=== PATIENT | male | born 1985 | race Caucasian/White ===

== ENCOUNTER 2017-02-06 04:58 | Emergency (ER) | payer SELFPAY ==
[2017-02-06 09:36] LABS: BASOPHIL % 0.2 % (0-2); RED CELL DISTRIBUTION WIDTH 13.6 % (11.5-14.5)
[2017-02-06 09:42] LABS: PLATELET COUNT 126 x10^3mcL (130-400)
[2017-02-06 10:23] LABS: CALCIUM 8.6 mg/dL (8.5-10.1); CARBON DIOXIDE 23.5 mmol/L (21-32); CHLORIDE SERUM 100 mmol/L (98-107); CREATININE SERUM 1.1 mg/dL (0.7-1.3); GFR1 > 60 mL/min; GLUCOSE SERUM 101 mg/dL (74-106); POTASSIUM SERUM 3.7 mmol/L (3.5-5.1); SODIUM SERUM 133 mmol/L (136-145)
[2017-02-06 10:27] LABS: ALKALINE PHOSPHATASE 89 U/L (46-116); ALT/SGPT 72 U/L (16-63); AMYLASE 33 U/L (25-115); AST/SGOT 38 U/L (15-37); BILIRUBIN TOTAL 0.84 mg/dL (0.20-1.00); LIPASE 227 IU/L (73-393); TOTAL PROTEIN, SERUM 8.2 g/dL (6.4-8.2)
[2017-02-06 11:33] VITALS: BP 129/77
== END 2017-02-06 11:33 | disposition home or self-care (01) ==
LOC: ED 04:58
PROVIDERS: Specialist
DX: R10.9 Unspecified abdominal pain (principal); R11.10 Vomiting, unspecified; R19.7 Diarrhea, unspecified
CPT/HCPCS: 83880; J1885; J7030

== ENCOUNTER 2017-05-18 23:40 | Emergency (ER) | payer SELFPAY ==
[~2017-05-18] VITALS: Ht 172.7 cm; Wt 96.2 kg
[2017-05-18 23:58] VITALS: BP 139/62
== END 2017-05-19 00:25 | disposition left against medical advice (07) ==
LOC: ED 23:40
DX: Z53.21 Procedure and treatment not carried out due to patient leaving prior to being seen by health care provider (principal)

== ENCOUNTER 2017-05-19 11:28 | Emergency (ER) | payer SELFPAY ==
[2017-05-19 11:35] VITALS: BP 127/95
== END 2017-05-19 12:00 | disposition left against medical advice (07) ==
LOC: ED 11:28
DX: Z53.21 Procedure and treatment not carried out due to patient leaving prior to being seen by health care provider (principal)

== ENCOUNTER 2017-05-19 13:15 | Emergency (ER) | payer SELFPAY ==
[~2017-05-19] VITALS: Ht 167.6 cm; Wt 90.7 kg
[2017-05-19 14:16] LABS: CALCIUM 8.6 mg/dL (8.5-10.1); CARBON DIOXIDE 24.6 mmol/L (21-32); CHLORIDE SERUM 100 mmol/L (98-107); CREATININE SERUM 0.8 mg/dL (0.7-1.3); GFR1 > 60 mL/min; GLUCOSE SERUM 77 mg/dL (74-106); POTASSIUM SERUM 3.2 mmol/L (3.5-5.1); SODIUM SERUM 135 mmol/L (136-145)
[2017-05-19 14:20] LABS: BASOPHIL % 0.4 % (0-2); PLATELET COUNT 212 x10^3mcL (130-400); RED CELL DISTRIBUTION WIDTH 12.9 % (11.5-14.5)
[2017-05-19 14:21] LABS: ALKALINE PHOSPHATASE 60 U/L (46-116); ALT/SGPT 29 U/L (16-63); AMYLASE 24 U/L (25-115); AST/SGOT 27 U/L (15-37); BILIRUBIN TOTAL 1.03 mg/dL (0.20-1.00); LIPASE 128 IU/L (73-393); TOTAL PROTEIN, SERUM 7.4 g/dL (6.4-8.2)
[2017-05-19 15:09] LABS: microscopic required? NO
[2017-05-19 15:18] LABS: UA SPECIFIC GRAVITY <=1.005 (1.005-1.035); urine erythrocyte NEGATIVE (NEGATIVE)
[2017-05-19 15:27] LABS: AMPHETAMINE QUAL UR POSITIVE (NEG <=1000)
[2017-05-19 15:53] VITALS: BP 131/76
== END 2017-05-19 15:54 | disposition home or self-care (01) ==
LOC: ED 13:15
PROVIDERS: Emergency Medicine
DX: T43.625A Adverse effect of amphetamines, initial encounter (principal); R10.13 Epigastric pain; Y92.89 Other specified places as the place of occurrence of the external cause
CPT/HCPCS: J1885; J2405; J7030; Q0092

== ENCOUNTER 2018-09-05 22:15 | Emergency (ER) | payer MEDICAID ==
[~2018-09-05] VITALS: Ht 190.5 cm; Wt 110.7 kg
[2018-09-05 22:39] VITALS: Ht 190.5 cm; Wt 110.7 kg
[2018-09-05 23:31] VITALS: BP 145/80
== END 2018-09-05 23:31 | disposition home or self-care (01) ==
LOC: ED 22:15
DX: H66.91 Otitis media, unspecified, right ear (principal); R51 Headache

== ENCOUNTER 2018-09-28 15:16 | Emergency (ER) | payer MEDICAID ==
[~2018-09-28] VITALS: Ht 190.5 cm; Wt 107.5 kg
[2018-09-28 15:21] VITALS: BP 144/76; Ht 190.5 cm; Wt 107.5 kg
== END 2018-09-28 16:07 | disposition left against medical advice (07) ==
LOC: ED 15:16
DX: Z53.21 Procedure and treatment not carried out due to patient leaving prior to being seen by health care provider (principal)

== ENCOUNTER 2018-11-29 22:17 | Emergency (ER) | payer MEDICAID ==
[~2018-11-29] VITALS: Ht 190.5 cm; Wt 111.1 kg
[2018-11-29 22:22] VITALS: Ht 190.5 cm; Wt 111.1 kg
[2018-11-30 00:59] VITALS: BP 133/80
== END 2018-11-30 00:59 | disposition home or self-care (01) ==
LOC: ED 22:17
DX: S46.002A Unspecified injury of muscle(s) and tendon(s) of the rotator cuff of left shoulder, initial encounter (principal); I10 Essential (primary) hypertension; X50.9XXA Other and unspecified overexertion or strenuous movements or postures, initial encounter; Y93.89 Activity, other specified; Y92.89 Other specified places as the place of occurrence of the external cause; Y99.8 Other external cause status
CPT/HCPCS: J1885; J7030

== ENCOUNTER 2019-01-29 18:33 | Emergency (ER) | payer MEDICAID ==
[~2019-01-29] VITALS: Ht 170.2 cm; Wt 103.4 kg
[2019-01-29 18:44] VITALS: Ht 170.2 cm; Wt 103.4 kg
[2019-01-29 20:52] VITALS: BP 143/78
== END 2019-01-29 20:52 | disposition home or self-care (01) ==
LOC: ED 18:33
DX: R10.13 Epigastric pain (principal); R11.2 Nausea with vomiting, unspecified; K92.1 Melena; F10.10 Alcohol abuse, uncomplicated
CPT/HCPCS: J1885; J7030

== ENCOUNTER 2020-06-15 23:23 | Emergency (ER) | payer MEDICAID ==
[~2020-06-15] VITALS: Ht 190.5 cm; Wt 110.8 kg
[2020-06-15 23:25] VITALS: Ht 190.5 cm; Wt 110.8 kg
[2020-06-16 00:32] LABS: BASOPHIL % 1.1 % (0-2); PLATELET COUNT 164 x10^3mcL (130-400); RED CELL DISTRIBUTION WIDTH 13.1 % (11.5-14.5)
[2020-06-16 00:45] LABS: CALCIUM 8.6 mg/dL (8.5-10.1); CHLORIDE SERUM 104 mmol/L (98-107); GFR1 > 60 mL/min; GLUCOSE SERUM 116 mg/dL (74-106); POTASSIUM SERUM 3.9 mmol/L (3.5-5.1); SODIUM SERUM 139 mmol/L (136-145)
[2020-06-16 00:49] LABS: ALBUMIN 3.9 g/dL (3.4-5.0); ALKALINE PHOSPHATASE 105 U/L (46-116); ALT/SGPT 67 U/L (16-63); AST/SGOT 30 U/L (15-37); BILIRUBIN TOTAL 0.3 mg/dL (0.20-1.00); TOTAL PROTEIN, SERUM 7.6 g/dL (6.4-8.2)
[2020-06-16 01:27] VITALS: BP 120/70
== END 2020-06-16 01:27 | disposition home or self-care (01) ==
LOC: ED 23:23
PROVIDERS: Emergency Medicine
DX: M94.0 Chondrocostal junction syndrome [Tietze] (principal)
CPT/HCPCS: J1885

== ENCOUNTER 2020-07-27 20:43 | Emergency (ER) | payer MEDICAID ==
[~2020-07-27] VITALS: Ht 190.5 cm; Wt 112.0 kg
[2020-07-27 21:42] VITALS: Ht 190.5 cm; Wt 112.0 kg
[2020-07-28 00:42] VITALS: BP 141/79
== END 2020-07-28 00:42 | disposition home or self-care (01) ==
LOC: ED 20:43
DX: S93.402A Sprain of unspecified ligament of left ankle, initial encounter (principal); M54.32 Sciatica, left side; W17.89XA Other fall from one level to another, initial encounter; Y93.89 Activity, other specified; Y92.89 Other specified places as the place of occurrence of the external cause; Y99.8 Other external cause status